=== PATIENT | female | born 1990 | race Hispanic/Latino ===

== ENCOUNTER 2017-10-23 18:28 | Emergency (ER) | payer MEDICAID ==
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
[2017-10-23 20:26] LABS: ALB/GLOB RATIO 1.2 (1.0-2.1); ALBUMIN 3.9 g/dL (3.5-5.0); ALT/SGPT 23 U/L (9-52); AST/SGOT 20 U/L (14-36); BLOOD UREA NITROGEN 13 mg/dl (7-17); CALCIUM 9.1 mg/dL (8.4-10.2); GFR AFRICAN-AMERICAN > 60; GFR NON-AFRICAN AMERICAN > 60
[2017-10-23 20:30] LABS: ACETAMINOPHEN < 10.0 ug/ml (10.0-30.0); SALICYLATE < 1.0 mg/dl
[2017-10-23 20:34] LABS: BASO # 0.1 K/uL (0.0-0.2); BASO % 0.7 % (0.0-2.0); EOS # 0.1 K/uL (0.0-0.7); EOS % 0.9 % (0.0-4.0); HEMOGLOBIN 12.8 g/dL (12.0-16.0); LYMPH # 2.4 K/uL (1.0-4.3); MEAN CELL VOLUME 89.4 fl (81.0-99.0); MEAN CORPUSCULAR HEMOGLOBIN 29.1 pg (27.0-31.0); MEAN CORPUSCULAR HGB CONC 32.5 g/dL (33.0-37.0); MONO # 0.5 K/uL (0.0-0.8); MONO % 6.6 % (0.0-10.0); NEUT # 4.6 K/uL (1.8-7.0); NEUT % 59.8 % (50.0-75.0); NRBC % 0.1 % (0.0-0.0); RBC 4.38 Mil/uL (3.80-5.20); RED CELL DISTRIBUTION WIDTH 13.7 % (11.5-14.5); WHITE BLOOD COUNT 7.6 K/uL (4.8-10.8)
[2017-10-23 20:42] LABS: BARBITURATES, UR NEGATIVE (NEGATIVE); BENZODIAZEPINES, UR NEGATIVE (NEGATIVE); OPIATES, UR NEGATIVE (NEGATIVE); PHENCYCLIDINE, UR NEGATIVE (NEGATIVE)
[2017-10-23 20:48] LABS: URINE BACTERIA RARE (<OCC); URINE BILIRUBIN NEGATIVE (NEGATIVE); URINE BLOOD NEGATIVE (NEGATIVE); URINE CLARITY CLEAR (Clear); URINE COLOR COLORLESS (YELLOW); URINE GLUCOSE (UA) NEG (Normal); URINE LEUKOCYTE ESTERASE NEG Leu/uL (Negative); URINE NITRATE NEGATIVE (NEGATIVE); URINE PROTEIN NEGATIVE (NEGATIVE); URINE UROBILINOGEN 0.2-1.0 mg/dL (0.2-1.0)
--- NOTE | 2017-10-23 21:03 | ED PDOC ---
- Laboratory Results Result Diagrams: 10/23/17 19:40 10/23/17 19:40 - ECG ECG: Positive for: Viewed By Me (reviewed by ED attending) ECG Rhythm: Positive for: Sinus Rhythm O2 Sat by Pulse Oximetry: 99 - Progress ED Course And Treament: Case endorsed to jingle writer from [facility] pending crisis eval/labs Patient evaluated by washhouse worker; to be evaluated by [facility] for commitment as per Dr. Holguin 21:45 Notified by staff that patient eloped from ED; patient was found and returned to ED down the street from the hospital by ED staff. Patient escorted to bed agitated; restrained, and medicated for safety/acute agitation 23:30 Patient sleeping; no distress 10/24/17 1:00 Patient sleeping; no distress 2:30 Patient sleeping; no distress 4:00 Patient sleeping; no distress 5:30 Patient sleeping; no distress Disposition - Clinical Impression Clinical Impression: Paranoid ideation - POA Present On Arrival: None - Disposition Disposition: Transfer of Care Disposition Time: 05:53 Condition: FAIR Patient Signed Over To: Angel Wong Handoff Comments: pending [facility] eval
[2017-10-24 08:32] VITALS: PULSE 86
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
--- NOTE | 2017-10-24 17:16 | RAD ---
HISTORY: medical clearance COMPARISON: No prior. TECHNIQUE: Chest PA and lateral FINDINGS: LUNGS: No active pulmonary disease. PLEURA: No significant pleural effusion identified. No pneumothorax apparent. CARDIOVASCULAR: Normal. OSSEOUS STRUCTURES: No significant abnormalities. VISUALIZED UPPER ABDOMEN: Normal. OTHER FINDINGS: None. IMPRESSION: No active disease.
[2017-10-24 19:48] VITALS: BP 112/69; RESP 16; TEMP 98.8; O2SAT 99
--- NOTE | 2017-10-24 22:05 | ED PDOC ---
- Laboratory Results Result Diagrams: 10/23/17 19:40 10/23/17 19:40 - ECG O2 Sat by Pulse Oximetry: 99 (RA) Pulse Ox Interpretation: Normal Medical Decision Making Medical Decision Makin:00 Patient endorsed to me by Dr. Kathi Fall at this time, pending [facility] bed availability. 22:25 Patient transferred to [facility]. Scribe Attestation: Documented by Kaylie Galvez, acting as a scribe for Angel Wong MD Provider Scribe Attestation: All medical record entries made by the Scribe were at my direction and personally dictated by me. I have reviewed the chart and agree that the record accurately reflects my personal performance of the history, physical exam, medical decision making, and the department course for this patient. I have also personally directed, reviewed, and agree with the discharge instructions and disposition. Disposition - Clinical Impression Clinical Impression: Paranoid ideation - POA Present On Arrival: None - Disposition Disposition: Discharged to [facility] Disposition Time: 22:25 Condition: FAIR Forms: [employer] (Nauruan)
--- NOTE | 2017-10-24 23:44 | CARD ---
APPROVED REPORT EKG Measurement Heart [id number] <Conclusion> Normal sinus rhythm Normal ECG
== END 2017-10-24 22:20 | disposition short-term general hospital (02) ==
LOC: H.ER 18:28
DX: F22 Delusional disorders (principal); F31.9 Bipolar disorder, unspecified; F41.9 Anxiety disorder, unspecified; Z91.19 Patient's noncompliance with other medical treatment and regimen
CPT/HCPCS: 71046; 80053; 80320; 80324; 80329; 80345; 80346; 80349; 80353; 80358; 80361; 81003; 81025; 83992; 84443; 85025; 93005; 96372; 99285; J1630; J2060